=== PATIENT | male | born 1970 | race Caucasian/White ===

== ENCOUNTER → 2016-11-05 | Day surgery (SDC) | payer OTHER, MEDICARE ==
[~2016-11-05] MED LIST: BUPIVACAINE HCL PF 0.75% 30 ML VIAL ONE; EPINEPHrine HCL (1:1000) 30 MG/30 ML VIAL ONE; KETOROLAC TROMETHAMINE 30 MG/ML (IVP) VIAL IV PUSH ONE; LACTATED RINGER'S 1000 ML INJ 1,000 ML ONE; LIDOCAINE 1.5%/EPINEPHrine 1:200,000 PF SOLN 30 ML AMP ONE; MIDAZOLAM HCL 5 MG/ML VIAL (1 ML) ONE; ONDANSETRON HCL 4 MG/2 ML VIAL IV PUSH ONE; PROPOFOL 200 MG/20 ML AMP IV ONE; ceFAZolin 2 GM PREMIX 50 ML ONE
--- NOTE | 2016-11-07 22:34 | MP ---
cc: NATHANIEL TODD M.D. 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 PROCEDURE Left shoulder arthroscopic rotator cuff repair, left shoulder arthroscopic subacromial decompression, left shoulder arthroscopic extensive debridement of labral SLAP tear with chondroplasty of the glenohumeral joint. SURGEON Dr. Nathaniel Todd. PNEUMATIC TUBE REPAIRER JOCELYN Lazaro ANESTHESIA General with interscalene block. ESTIMATED BLOOD LOSS Less than 10 mL COMPLICATIONS None. IMPLANTS USED Arthrex. JUSTIFICATION This patient is a 46-year-old male who injured his left shoulder. He has had persistent symptoms of pain and weakness. His condition failed conservative treatment. Clinical exam as well as MRI confirmed the above-named findings. The patient was counseled as to the risks, benefits and alternatives to the above-named proposed surgical procedure. He did wish to proceed with surgery. PROCEDURE IN DETAILS Written consent was obtained. The patient identified by name, taken to the operating room and placed supine. After general anesthesia was administered as well as 2 grams IV Ancef he did receive preoperative interscalene block. The patient was carefully turned to a right lateral decubitus position. A lateral arm roll was placed. All bony prominences and pressure points were well padded. The patient's neck was carefully monitored and kept neutral and an arthroscopic arm [place] was gently applied to the left upper extremity with 10 pounds of traction placed. The left shoulder was prepped and draped using isopropyl alcohol, Hibiclens solution and DuraPrep solution. After an adequate time-out was performed a standard posterior and anterior glenohumeral arthroscope portal was established at the glenohumeral joint with evidence of labral tearing along the anterior, superior and posterior portions as well extensive evidence of tearing along the undersurface of the biceps and arthroscopic shaver was introduced in the anterior portal to perform extensive debridement. The shaver was used to perform a debridement of the labrum along the anterior 3 o'clock position up to the superior 12 o'clock position which also did include the biceps origin and also along the posterior position of the labrum down to the 9 o'clock position. There was evidence of a full-thickness tear of the subscapularis tendon with detachment along the lesser tuberosity. An Arthrex suture lasso was used to shuttle a #2 fiber link suture through the subscapularis tendon and subsequently the subscapularis rotator cuff tendon was repaired with a Arthrex 4.75 mm Bio-SwiveLock anchor into the lesser tuberosity. The repair was probed and noted to have good stability of fixation after insertion of the anchor. Attention was turned the subacromial space where there was evidence of significant impingement with bursitis. The arthroscopic shaver was introduced from a lateral portal. A subacromial decompression was performed. The shaver was used to perform extensive bursectomy. Arthroscopic bur used to perform an acromioplasty. The cautery device was used to release the coracoacromial ligament. There was evidence of full-thickness tear along the anterior portion of the supraspinatus tendon extending all the way to the mid and posterior portion of supraspinatus tendon. The bur was used to decorticate the greater tuberosity in preparation for rotator cuff tendon repair. An Arthrex scorpion device was used to shuttle #2 fiber tape suture in a horizontal mattress pattern through the midportion of the tendon and a #2 fiber link suture was placed along the anterior portion of the tendon. The sutures were then placed through the eyelet of an Arthrex 4.75 mg Bio-SwiveLock anchor. After appropriate tensioning of sutures the anchor was inserted into the greater tuberosity for rotator cuff tendon repair. There was good stability of fixation after insertion of the anchor. At the conclusion of the surgical procedure the arthroscopic portal were closed with 3-0 Prolene suture. Sterile dressing applied. The patient placed in sling and swath immobilizer. He tolerated the procedure well with no intraoperative complications noted. Uriah Zeng physician assistant administrator, certified was present during the entire procedure to include patient positioning and the procedure itself. The medical necessity of physician assistant administrator was indicated in this case due to the complexity of the procedure. He assisted with appropriate manipulation of the arm and also manipulation of the camera. He assisted with shuttling of sutures and also implantation of suture anchor for purposes of rotator cuff tendon repair. MD JESSY Finley/KK /8:43 AM /10:00 PM
== END | disposition home or self-care (01) ==
LOC: ESDC 06:12
PROVIDERS: ATTEND Orthopaedic Surgery Sports Medicine
DX: M75.122 Complete rotator cuff tear or rupture of left shoulder, not specified as traumatic (principal); M75.42 Impingement syndrome of left shoulder; S43.432A Superior glenoid labrum lesion of left shoulder, initial encounter; M94.212 Chondromalacia, left shoulder; E11.9 Type 2 diabetes mellitus without complications; Z79.84 Long term (current) use of oral hypoglycemic drugs
CPT/HCPCS: 01630; 01991; 29823; 29826; 29827; 64417; 82948; C1713; J0171; J0690; J1885; J2250; J2405; J7120